=== PATIENT | male | born 1970 | race Caucasian/White ===

== ENCOUNTER 2018-05-18 08:22 | Day surgery (SDC) | payer BC ==
--- NOTE | 2018-04-26 19:36 | HP ---
AMENDED REPORT NOW INCLUDES DESIGNATED COSIGNER PREOPERATIVE HISTORY AND PHYSICAL: DATE OF ADMISSION/SURGERY: 05/07/18 - OR [facility] DATE OF OFFICE VISIT/ENCOUNTER: 04/07/18 ATTENDING SURGEON: Aurea Pike MD * (DICTATED BY DOMINICK KERR) PROCEDURE: Dupuytren's excision, left hand, thumb and small fingers. CHIEF COMPLAINT: Dupuytren's nodules/cords, left hand. HISTORY OF PRESENT ILLNESS: This is a 48-year-old male who was initially seen a couple of years ago by Dr. Pike and was diagnosed with Dupuytren's nodules. They have now progressed into cords involving his little finger, ring finger and thumb. He is not in a lot of pain, but it is bothersome when he tries to ironer sock tools. He cannot straighten out his ring finger fully. This is his nondominant hand. He would like to proceed with surgical intervention at this time. PAST MEDICAL HISTORY: Unremarkable. PAST SURGICAL HISTORY: 1. ORIF, left tibia, in 2011. 2. Bilateral hernia repair. 3. Tonsillectomy. CURRENT MEDICATIONS: None. ALLERGIES: No known drug allergies. FAMILY MEDICAL HISTORY: Noncontributory. SOCIAL HISTORY: The patient is a self-employed contractor. He denies tobacco use, recreational drug use, and does not drink alcohol. REVIEW OF SYSTEMS: Negative for general, cephalic, cardiovascular, respiratory , GI, , other musculoskeletal, integumentary, endocrine, neurologic, and hematologic symptoms. Infectious Disease: Negative for history of MRSA, hepatitis C, HIV. PHYSICAL EXAMINATION GENERAL: Well-developed, well-nourished 48-year-old male, in no acute distress. VITAL SIGNS: Height 5 feet 11 inches, weight 163 pounds. Pulse rate 48, blood pressure 122/78. HEENT: Normocephalic, atraumatic. Pupils are equal, round, and reactive to light and accommodation. Extraocular movements are intact. Throat is clear. NECK: Supple. No palpable lymph nodes. PULMONARY: Lungs are clear to auscultation bilaterally. No wheezes, rales, or rhonchi. CARDIOVASCULAR: Regular rate and rhythm. S1, S2. No murmurs, rubs, or gallops. No edema. ABDOMEN: Positive bowel sounds. Soft, nontender. NEUROLOGICAL: Alert and oriented x3. Cranial nerves II through XII are intact. Sensation is intact to light touch. MUSCULOSKELETAL: On exam of his left hand, he has a Dupuytren's cord from the center of his palm past the MP flexion crease at the small finger. There is another cord again from the center of the palm to the MP flexion crease of the thumb and there is a slight contracture of the ring finger. IMPRESSION: Left hand Dupuytren's contractures involving the thumb and the small finger. PLAN: The patient is scheduled to undergo a Dupuytren's excision, left hand, thumb and small fingers, with Dr. Pike on 05/07/18. He will return to the office 10 days postop for followup and suture removal. A prescription for tramadol was e- scribed to the patient's pharmacy for postoperative pain management. DOMINICK KERR [id number]/[facility] #: [id number] PAULA
[~2018-05-18 08:22] MED LIST: Buffered Lidocaine 0.9% SYRIN* 5 ML/SYR SYRINGE INTRADERM ONE; Famotidine IV* 10 MG/ML 2 ML (20 mg) IV ONE; Famotidine IV* 10 MG/ML 2 ML (20 mg) ONE
[2018-05-18] MEDS ORDERED: ceFAZolin 2 GM PREMIX in ORs 2 GM/50 ML BAG IVPB ONE (08:43)
[2018-05-18] MEDS ORDERED: fentaNYL* 50 MCG/ML 2 ML VIAL (100 MCG VIAL) ONE (10:42)
[2018-05-18] MEDS ORDERED: Midazolam* 1 MG/ML 5 ML VIAL (5 MG) ONE (10:42)
[2018-05-18] MEDS ORDERED: Acetaminophen TAB* 325 MG PO PRN (10:53)
[2018-05-18] MEDS ORDERED: DiMENhydriNATE IV* 50 MG/ML VIAL IV PUSH PRN (10:53)
[2018-05-18] MEDS ORDERED: Naloxone* 0.4 MG/ML 1 ML VIAL IV PRN (10:53)
[2018-05-18] MEDS ORDERED: oxyCODONE TAB* 5 MG TAB PO PRN (10:53)
[2018-05-18] MEDS ORDERED: Lidocaine 1% INJ* 10 MG/ML 30 ML SDV ONE (11:02)
[2018-05-18] MEDS ORDERED: Lidocaine 2% PF * 5 ML VIAL ONE (11:52)
[2018-05-18] MEDS ORDERED: Propofol* 10 MG/ML 20 ML BTL ONE ×2 (11:52→13:53)
[2018-05-18] MEDS ORDERED: Ondansetron INJ* 2 MG/ML VIAL ONE (11:52)
[2018-05-18] MEDS ORDERED: Ketorolac INJ* 30 MG/ML 1 ML VIAL ONE (11:52)
[2018-05-18 12:56] VITALS: BP 108/66
--- NOTE | 2018-05-19 08:45 | OP ---
DATE OF OPERATION: 05/18/18 [facility] DATE OF : 70 SURGEON: Aurea Pike MD. DRUG CLERK: DOMINICK Ewing. ANESTHESIA: Local MAC. PRE-OP DIAGNOSIS: Left thumb and left small finger Dupuytren's contracture. POST-OP DIAGNOSIS: Left thumb and left small finger Dupuytren's contracture. OPERATIVE PROCEDURE: Removal of Dupuytren's contracture of left thumb and small finger. ESTIMATED BLOOD LOSS: Zero. TOURNIQUET TIME: About an hour. INDICATION FOR PROCEDURE: Emiliano is a 48-year-old male who has progressive contracture with Dupuytren's tissue of his left thumb and left small finger. He presents for excision of the Dupuytren's contracture. DESCRIPTION OF PROCEDURE: The patient was brought to the operating room, was given sedation anesthetic and local infiltration of a total of 20 cc of 1% plain lidocaine. The skin of his left hand and forearm was prepped and draped in usual sterile fashion. The hand and forearm were exsanguinated and tourniquet elevated to 250 mmHg. Jacqui incisions were made over the small finger contracture and the flaps were carefully dissected up over the Dupuytren' s tissue. The tissue was then carefully dissected away from the neurovascular bundles and the flexor tendon removed in its entirety. There was full extension of finger. The wound was irrigated and skin edges reapproximated with 4-0 nylon suture. Jacqui incisions were made over the thumb Dupuytren's tissue and again carefully dissected down to the tissue, dissecting it away from the skin and away from the surrounding neurovascular bundles. It was removed in its entirety. The wound was irrigated and skin edges reapproximated with 4-0 nylon suture. The wounds were dressed with Xeroform, 4x4, Webril, and an Jaime wrap. The patient tolerated the procedure well, was brought to the recovery room in good condition. [id number]/[facility] #: [id number] [facility] HOS[facility]ITALJamshid
== END 2018-05-18 13:24 | disposition home or self-care (01) ==
LOC: OREAST 08:22
PROVIDERS: ATTEND Orthopaedic Surgery
DX: M72.0 Palmar fascial fibromatosis [Dupuytren] (principal)
CPT/HCPCS: 88304; J0690; J1885; J2250; J2405; J2704; J3010